=== PATIENT | male | born 1960 | race Caucasian/White ===

== ENCOUNTER 2017-05-17 10:34 | Emergency (ER) | payer SELFPAY ==
[~2017-05-17] VITALS: Ht 188 cm; Wt 114.0 kg
[2017-05-17 10:37] VITALS: Ht 188 cm; Wt 114.0 kg
[2017-05-17] MEDS ORDERED: ONDANSETRON 4 MG INJ IV STA (10:51)
[2017-05-17] MEDS ORDERED: SOD CHLORIDE 0.9% 500 ML IV STA (10:51)
[2017-05-17] MEDS ORDERED: morphine 4 MG/ML VIAL IV STA (10:51)
[2017-05-17 11:27] LABS: BASOPHILS % 0.4 % (0.0-2.0); EOSINOPHILS # 0.1 10^3/ul (0.0-0.5); EOSINOPHILS % 1.1 % (0.0-7.0); HEMATOCRIT 36.7 % (42.0-52.0); HEMOGLOBIN 13.2 g/dl (14.0-18.0); LYMPHOCYTES # 1.1 10^3/ul (0.8-2.9); LYMPHOCYTES % 20.1 % (15.0-51.0); MEAN CORPUSCULAR HEMOGLOBIN 36.3 pg (29.0-33.0); MEAN CORPUSCULAR VOLUME 100.8 fl (82.0-101.0); MEAN PLATELET VOLUME 8.6 fl (7.4-10.4); MONOCYTE # 0.6 10^3/ul (0.3-0.9); MONOCYTES % 11.5 % (0.0-11.0); NEUTROPHIL # 3.7 10^3/ul (1.6-7.5); NEUTROPHILS % 66.5 % (39.0-77.0); PLATELET COUNT 292 10^3/UL (140-415); RED BLOOD COUNT 3.64 10^6/ul (4.70-6.10); RED CELL DISTRIBUTION WIDTH 14.8 % (11.5-14.5); WHITE BLOOD COUNT 5.5 10^3/ul (4.8-10.8)
[2017-05-17] MEDS ORDERED: RIVAROXABAN 15 MG TABLET PO ONE (11:30)
--- NOTE | 2017-05-17 11:35 | ERD ---
ER Documentation Chief Complaint Date/Time DATE: 05/17/17 TIME: 11:31 Chief Complaint chest pain with sob since morning h/o PE HPI This is a 56-year-old male visiting from out of town who presents with chest pain. The patient states the chest pain is sharp, slightly pleuritic associated with a mild cough and lower extremity swelling similar to episodes of pulmonary embolism in the past. Patient has a hypercoagulable state, unknown diagnosis. He states that he is supposed to be taking Xarelto but does not take it on a regular basis, last dose approximately 4-5 days ago. The patient denies any exertional symptoms. He states that he has been flying a lot recently including international flights. ROS All systems reviewed and are negative except as per history of present illness. Medications Home Meds Reported Medications Rivaroxaban* (Xarelto*) 15 Mg Tablet, 15 MG PO WITH BREAKFAST DINNE, TAB 05/17/17 Allergies Allergies: Coded Allergies: No Known Allergy (Unverified , 05/17/17) FmHx Family History: No diabetes Physical Exam Vitals Vital Signs Date Time Temp Pulse Resp B/P Pulse Ox O2 Delivery O2 Flow Rate FiO2 05/17/17 12:59 98.3 76 20 138/92 97 05/17/17 10:37 98.1 90 18 132/90 96 Physical Exam General: Well developed, well nourished, no acute distress Head: Normocephalic, atraumatic. Eyes: Pupils equally reactive, EOM intact ENT: Moist mucous membranes Neck: Supple, no lymphadenopathy Respiratory: Lungs clear bilaterally, no distress Cardiovascular: RRR, no murmurs, rubs, or gallops Abdominal: Soft, non-tender, non-distended, no peritoneal signs : Deferred MSK: Scant bilateral lower extremity edema, no unilateral swelling, 5/5 strength Neurologic: Alert and oriented, moving all extremities, normal speech, no focal weakness, no cerebellar signs Skin: No rash Psych: Normal mood Result Diagram: 05/17/17 1110 05/17/17 1110 Results 24 hrs Laboratory Tests Test 05/17/17 11:10 White Blood Count 5.510^3/ul Red Blood Count 3.6410^6/ul Hemoglobin 13.2g/dl Hematocrit 36.7% Mean Corpuscular Volume 100.8fl Mean Corpuscular Hemoglobin 36.3pg Mean Corpuscular Hemoglobin Concent 36.0g/dl Red Cell Distribution Width 14.8% Platelet Count 14934^3/UL Mean Platelet Volume 8.6fl Neutrophils % 66.5% Lymphocytes % 20.1% Monocytes % 11.5% Eosinophils % 1.1% Basophils % 0.4% Nucleated Red Blood Cells % 0.0/100WBC Neutrophils # 3.710^3/ul Lymphocytes # 1.110^3/ul Monocytes # 0.610^3/ul Eosinophils # 0.110^3/ul Basophils # 0.010^3/ul Nucleated Red Blood Cells # 0.010^3/ul Prothrombin Time 12.6Sec Prothrombin Time Ratio 0.9 INR International Normalized Ratio 0.94 Activated Partial Thromboplast Time 24.0Sec Sodium Level 145mmol/L Potassium Level 3.5mmol/L Chloride Level 105mmol/L Carbon Dioxide Level 23mmol/L Anion Gap 21 Blood Urea Nitrogen 7mg/dl Creatinine 0.76mg/dl Glucose Level 114mg/dl Calcium Level 8.8mg/dl Troponin I < 0.012ng/ml B-Type Natriuretic Peptide 456PG/ML Current Medications Medications (Trade) Dose Ordered Sig/Jose Route PRN Reason Start Time Stop Time Status Last Admin Dose Admin Sodium Chloride (NS) 500 ml @ 500 mls/hr Q1H STAT IV 05/17/17 10:51 05/17/17 11:50 DC 05/17/17 11:08 Morphine Sulfate (morphine) 4 mg ONCE STAT IV 05/17/17 10:51 05/17/17 10:53 DC 05/17/17 11:08 Ondansetron HCl (Zofran Inj) 4 mg ONCE STAT IV 05/17/17 10:51 05/17/17 10:54 DC 05/17/17 11:08 Rivaroxaban (Xarelto) 15 mg ONCE ONCE PO 05/17/17 11:30 05/17/17 11:31 DC 05/17/17 11:48 IV Flush 10 ml 10 ml STK-MED ONCE .ROUTE 05/17/17 12:07 05/17/17 12:08 DC 05/17/17 12:30 Sodium Chloride 100 ml @ ud STK-MED ONCE .ROUTE 05/17/17 12:07 05/17/17 12:08 DC 05/17/17 12:30 Iohexol (Omnipaque) 100 ml @ STK-MED ONCE .ROUTE 05/17/17 12:07 05/17/17 12:08 DC 05/17/17 12:31 Procedures/MDM EKG, MONITORS, & DIAGNOSTIC IMAGING: EKG: I reviewed and interpreted a 12-lead EKG. Rhythm: Normal sinus rhythm Ectopy: None Intervals: No abnormalities ST segments: No elevations or depressions T waves: No contiguous inversions CTPA: IMPRESSION: 1. Negative CT pulmonary angiogram. No evidence for pulmonary embolism. 2. Mild cardiomegaly. 3. Coronary artery atherosclerotic vascular calcifications. 4. Mild dependent basilar subsegmental atelectasis. RPTAT: [facility] LAB INTERPRETATION: Negative troponin, indeterminate BnP MEDICAL DECISION MAKING: The patient presents with chest pain. The chest pain is somewhat concerning for pulmonary embolism given his history of hypercoagulable state and noncompliance with anticoagulation. The patient's chest pain is not consistent with cardiac etiology therefore I do not believe this is consistent with ACS and do not recommend inpatient hospitalization for cardiac workup. The patient will benefit from reinitiation of his anticoagulation which is Xarelto 15 mg twice daily. I do feel the patient would benefit from CTPA study given that if he does have significant clot burden I would recommend hospitalization for echocardiogram and close monitoring. The patient is agreeable. He understands the risks, benefits, alternatives of CT imaging. ER COURSE: The patient's symptoms improved with morphine. The patient CTPA is negative for pulmonary embolism. The patient was given his dose of Xarelto. Again, I did discuss the possibility of this being a cardiac origin however the patient denies significant cardiac disease. He does describe a slight decreased EF possibly secondary to PEs in the past. I discussed and offered inpatient hospitalization but the patient wishes to be discharged. He understands the risks of discharge and will follow up with his primary care physician. I kept the patient and/or family informed of laboratory and diagnostic imaging results throughout the emergency room course. DISPOSITION PLAN: We discussed follow up with the patient's primary care doctor within 24 to 48 hours as needed. We also discussed return to the emergency room for worsening symptoms or worsening condition. Outpatient referral: [None required] Discharge Medications: Xarelto 15 mg twice daily CONSULTATION: [] Departure Diagnosis: Primary Impression: Chest pain Chest pain type: unspecified Qualified Code: R07.9 - Chest pain, unspecified type Additional Impression: Noncompliance with medication regimen Condition: Stable ABDELRAHMAN BOSE MD May 17, 2017 11:35
[2017-05-17 11:48] LABS: PT RATIO 0.9
[2017-05-17 11:51] LABS: ANION GAP 21 (8-16); BLOOD UREA NITROGEN 7 mg/dl (7-20); CALCIUM 8.8 mg/dl (8.4-10.2); CARBON DIOXIDE 23 mmol/L (21-31); CHLORIDE 105 mmol/L (97-110); CREATININE 0.76 mg/dl (0.61-1.24); GLUCOSE 114 mg/dl (70-220); POTASSIUM 3.5 mmol/L (3.5-5.1); SODIUM 145 mmol/L (135-144)
[2017-05-17] MEDS ORDERED: RIVA15TA PO ×2 (12:01→13:11)
[2017-05-17] MEDS ORDERED: IOHEXOL 100 ML ONE (12:07)
[2017-05-17] MEDS ORDERED: SOD CHLORIDE 0.9% 100 ML ONE (12:07)
[2017-05-17 12:08] LABS: B-TYPE NATRIURETIC PEPTIDE 456 PG/ML (0-125)
[2017-05-17 12:10] LABS: TROPONIN-I < 0.012 ng/ml (0.00-0.12)
[2017-05-17 12:44] LABS: INR 0.94; PROTIME 12.6 Sec (12.2-14.2)
--- NOTE | 2017-05-17 13:05 | RADRPT ---
PROCEDURE: CTA Chest and pulmonary angiogram. CLINICAL INDICATION: Chest pain and shortness of breath. TECHNIQUE: CT scan of the chest and CT pulmonary angiogram was performed on a multidetector high-r [employer] CT scanner. High-resolution thin slice coronal and sagittal imaging was obtained from the axial source images. 3-D volumetric rendered post processing was performed as well. The patient w as examined following the uncomplicated intravenous administration of 100 cc of Omnipaque-350. The i mages were reviewed on a PACS workstation. The total exam CTDI equals 77.46, 20.04 mGy, and the tota l exam DLP equals 850.80 mGy-cm. One or more of the following dose reduction techniques were used: - Automated exposure control. - Adjustment of the mA and/or kV according to patient size. - Use of iterative reconstruction technique. COMPARISON: No prior studies are available for comparison. FINDINGS: CT chest: The lungs are clear. Minor subsegmental atelectasis is seen in the posterior lung bases bilaterally. No focal opacification, effusion, pneumothorax, edema, or nodules are seen. The central tracheobro nchial tree is clear. The mediastinum is unremarkable without evidence for mass or lymphadenopathy. The vascular structur es of the mediastinum are normal in course and caliber. The heart size is mildly enlarged without p ericardial thickening or effusion. Significant coronary artery atherosclerotic vascular calcificatio ns are identified. The axillary, subpectoral, and supraclavicular regions are unremarkable. The trina rounding chest wall is unremarkable. Imaging obtained through the upper abdomen is equally unremarka ble. The adrenal glands are symmetrically normal. The osseous structures are remarkable for degene rative spondylosis of the spine. CT pulmonary angiogram: No thrombus, clot, filling defect, or pulmonary web is identified. The pulmonary arteries are betty l in caliber and morphology. No filling defect is present to suggest pulmonary embolism. There is no evidence for pulmonary arterial hypertension. IMPRESSION: 1. Negative CT pulmonary angiogram. No evidence for pulmonary embolism. 2. Mild cardiomegaly. 3. Coronary artery atherosclerotic vascular calcifications. 4. Mild dependent basilar subsegmental atelectasis. RPTAT: [facility] .Armando De Los Santos MD, MD Date Time Electronically viewed and signed by .Armando De Los Santos MD, on 05/17/2017 13:04 .B/
[2017-05-17] MEDS ORDERED: HYDR-902 PO ×2 (13:28→13:30)
[2017-05-17 13:43] VITALS: BP 136/88; PULSE 76; RESP 18; TEMP 98.3
== END 2017-05-17 13:50 | disposition home or self-care (01) ==
LOC: E/R 10:34
DX: R07.9 Chest pain, unspecified (principal); Z79.01 Long term (current) use of anticoagulants; Z91.19 Patient's noncompliance with other medical treatment and regimen
CPT/HCPCS: 36415; 71275; 80048; 83880; 84484; 85025; 85610; 85730; 93005; 96374; 96375; 99285; J2270; J2405; J7040; Q9967